=== PATIENT | male | born 1965 | race African-American/Black ===

== ENCOUNTER 2019-04-28 14:03 | Inpatient (IN) ==
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
--- NOTE | 2019-04-28 15:08 | CT Scan Report ---
CT SCAN OF THE BRAIN WITHOUT IV CONTRAST CLINICAL HISTORY: Headache. COMPARISON STUDY: CT of the brain dated 01/20/2019. TECHNIQUE: Unenhanced axial CT scan of the brain is performed from the vertex to the skull base. A d ose lowering technique was utilized adhering to the principles of ALARA. FINDINGS: Brain parenchyma: There is mild microangiopathic change. Chronic lacunar infarcts are noted in the le ft thalamus and the right cerebellar hemisphere. There is no hemorrhage, mass effect, or evidence of acute territorial ischemia by CT criteria. Wong-white matter differentiation is preserved. No extra-a xial fluid collection is seen. Ventricles, sulci, cisterns: Normal in configuration. Intracranial vasculature: There is atherosclerotic calcification of the cavernous carotid arteries. Calvarium: There is chronic posttraumatic deformity of the right temporal bone. No acute/depressed ca lvarial fracture is seen. Sinuses and mastoids: The visualized paranasal sinuses are clear. The mastoid air cells are well pneu matized. Orbits: The bony orbits are grossly intact. IMPRESSION: There is no hemorrhage, mass effect, or evidence of acute territorial ischemia by CT magen saez. ACT 112: Negative or not required by law. Electronically signed by: Riley Gu M.D. 04/28/2019 3:06 PM
--- NOTE | 2019-04-28 15:12 | CT Scan Report ---
CT SCAN OF THE CERVICAL SPINE CLINICAL HISTORY: Neck pain. COMPARISON STUDY: CT of the cervical spine dated 01/20/2019. TECHNIQUE: CT scan of the cervical spine is performed from the skull base to the upper thoracic spine . Images are reviewed in the axial, sagittal, and coronal planes. IV contrast was not administered fo r this examination. A dose lowering technique was utilized adhering to the principles of ALARA. CT DOSE: 1002.86 mGy.cm FINDINGS: Skeletal structures: The skeletal structures are well mineralized. There is no evidence of fracture o r subluxation involving the cervical spine. Vertebral body height and alignment are maintained. There is straightening of the cervical lordosis. The odontoid process and lateral masses are intact. The a tlantoaxial articulation is preserved noting productive degenerative change. The spinous processes ap pear intact. Intervertebral discs: The disc spaces are well maintained. Central canal: Widely patent. Soft tissues: The prevertebral and paraspinous soft tissues are within normal limits. A small lipoma is incidentally noted in the right occipital scalp. A 2.4 cm sebaceous cyst is again noted in the pos terior neck. This was also seen on 01/20/2019. Mild soft tissue induration is present in the soft tiss ues of the left posterior neck. There are shotty cervical lymph nodes. Calvarium: The visualized calvarium at the skull base appears intact. Brain parenchyma: Partially visualized brain parenchyma the skull base is within normal limits. Sinuses and mastoids: The visualized paranasal sinuses are clear. The mastoid air cells are well pneu matized. Lung apices: Clear as visualized. IMPRESSION: 1. There is no evidence of fracture or subluxation involving the cervical spine. 2. Mild spondylotic change as above. 3. There is subcutaneous soft tissue induration noted in the left posterior neck. Correlate clinicall y for evidence of contusion or possibly cellulitis. ACT 112: Negative or not required by law. Electronically signed by: Riley Gu M.D. 04/28/2019 3:11 PM
[2019-04-28 16:11] LABS: Basophils # (auto) 0.02 K/uL (0-0.2); Basophils % (auto) 0.1 %; Eosinophils # (auto) 0.06 K/uL (0-0.5); Eosinophils % (auto) 0.4 %; Hematocrit (blood only) 45.5 % (42-52); Hemoglobin 15.9 g/dL (14.0-18.0); Immature Granulocytes # (auto) 0.04 K/uL (0.00-0.02); Immature Granulocytes % (auto) 0.3 %; Lymphocytes # (auto) 1.46 K/uL (1.2-3.4); Lymphocytes % (auto) 10.5 %; Mean Corpuscular Hemoglobin 27.8 pg (25-34); Mean Corpuscular Hgb Conc 34.9 g/dL (32-36); Mean Corpuscular Volume 79.7 fL (80-100); Mean Platelet Volume 11.3 fL (7.4-10.4); Monocytes # (auto) 1.67 K/uL (0.11-0.59); Monocytes % (auto) 12.1 %; Neutrophils # (auto) 10.59 K/uL (1.4-6.5); Neutrophils % (auto) 76.6 %; Platelet Count 224 K/uL (130-400); RDW Coefficient of Variation 13.5 % (11.5-14.5); RDW Standard Deviation 38.5 fL (36.4-46.3); Red Blood Count 5.71 M/uL (4.7-6.1); White Blood Count 13.84 K/uL (4.8-10.8)
[2019-04-28 16:32] LABS: INR 1.6 (0.9-1.1); Partial Thromboplastin Ratio 1.4; Partial Thromboplastin Time 37.3 Seconds (21.0-31.0)
[2019-04-28 16:40] LABS: Calcium 9.6 mg/dl (8.5-10.1); Creatinine Clr Calc Pharmacy 78.4 ml/min; Est GFR (Non-African American) 68.1; Potassium 3.9 mmol/L (3.5-5.1)
[2019-04-28] MEDS ORDERED: IOVERSOL 100ml IV PRN (18:10)
--- NOTE | 2019-04-28 18:27 | CT Scan Report ---
CT soft tissue neck w con CT DOSE: 630.10 mGy.cm CLINICAL HISTORY: Posterior neck pain. Possible abscess. Possible mastoiditis. ABNORMAL CT SCAN OF TH E CERVICAL SPINE TECHNIQUE: Helical images were acquired during intravenous administration of 88 cc of Optiray 320. A dose lowering technique was utilized adhering to the principles of ALARA. COMPARISON STUDY: CT scan of the cervical spine dated April 28, 2019, CT scan of facial bones reinier ed 01/20/2019 FINDINGS: There is mild pulmonary emphysema. No apical masses are visualized No thyroid masses are visualized. No salivary gland masses are visualized. The left submandibular gland appears atrophic or absent. There are prominent left-sided cervical lymph node statistically reactive. There is a posterior subcutaneous fluid collection measuring 2.5 cm, centered at the C2-3 level. Ther e is infiltration of the surrounding fat. There are a few adjacent lymph nodes likely reactive. The f indings are viewed as suspicious for infected cyst. A cyst was visualized in this location on the or January [address] scan without evidence of surrounding inflammatory change. Clinical correla tion in this regard is advocated There is no evidence of airway compromise. No mucosal space masses are visualized. There is a stable 14 mm lytic lesion within the right posterior mandible with nonaggressive features. There are no findings to indicate acute mastoiditis. There is soft tissue within the left external auditory canal, possibly representing cerumen. IMPRESSION: 1. No evidence of mastoiditis as well as clinically queried 2. Soft tissue within the left external auditory canal, possibly representing cerumen 3. 2.5 cm posterior subcutaneous fluid collection centered at the C2-3-level with infiltration of dillon rounding fat. The findings are suspicious for an infected cyst. Clinical correlation in this regard i s advocated 4. Mild left-sided cervical lymphadenopathy, statistically reactive. Imaging follow-up subsequent to resolution of the current inflammatory process is recommended ACT 112: Negative or not required by law. Electronically signed by: Rg Cardenas M.D. 04/28/2019 6:26 PM
[2019-04-28] MEDS ORDERED: VANCOMYCIN CONSULT ACTIVE PRN ×2 (18:57→22:41)
[2019-04-28] MEDS ORDERED: VANCOMYCIN HCL 1,750 MG in SODIUM CHLORIDE 0.9% 500 ML IV ONE (18:57)
[2019-04-28] MEDS ORDERED: MoRPHine SULFATE 4 MG/ML 1 ML CARP\\VIAL IV STA (20:12)
[2019-04-28] MEDS ORDERED: LIDOCAINE/EPINEPHRINE 1% 20 ML VIAL ONE (20:45)
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
[2019-04-28] MEDS ORDERED: DEXTROSE 50% 50 ML SYRINGE IV PRN (22:41)
[2019-04-28] MEDS ORDERED: KETOROLAC TROMETHAMINE 15 MG/ML VIAL IV PRN (22:41)
[2019-04-28] MEDS ORDERED: ONDANSETRON INJ 2 MG/ML 2 ML VIAL IV PRN (22:41)
[2019-04-28] MEDS ORDERED: GLUCOSE 10 TABS/TUBE PO PRN (22:41)
[2019-04-28] MEDS ORDERED: GLUCAGON FOR INJ 1 MG VIAL SQ PRN (22:41)
[2019-04-28] MEDS ORDERED: CARBOHYDRATES FOR HYPOGLYCEMIA PO PRN (22:41)
[2019-04-28] MEDS ORDERED: ACETAMINOPHEN 325 MG TAB PO PRN (22:41)
[2019-04-28] MEDS ORDERED: GLUCOSE 40% GEL 15 GM TUBE PO PRN (22:41)
[2019-04-28] MEDS ORDERED: INSULIN HUMAN NPH SC ONE (23:00)
--- NOTE | 2019-04-28 23:09 | Pharmacy Report ---
Pharmacy Abx Dose Short Note - Date of Service April 28, 2019 - Assessment & Plan Laboratory Tests 04/28/19 04/28/19 15:14 15:14 WBC 13.84 H Creatinine 1.20 Est Cr Clr Drug Dosing 78.4 Assessment 53 year old M receiving VANC for treatment of SSTI Day # 1 of antimicrobial therapy. Plan Vancomycin * Estimated p'kinetics: Ke~0.0774hr-1, T1/2~9hrs * LOADING DOSE: Vanc 20mg/kg 1750mg IV x 1 * MAINTENANCE DOSE: Vanc 1250mg 15mg/kg IV q12h * Goal trough level: ~15 mcg/mL * VANC Trough @ Css prior to 04/30/19 0400 dose Pharmacy will continue to follow and will adjust dose/frequency as necessary. Thank you.
[2019-04-28] MEDS ORDERED: METOPROLOL TARTRATE 1 MG/ML VIAL IV PRN (23:11)
[2019-04-28] MEDS ORDERED: METOPROLOL TARTRATE 25 MG TAB PO STA (23:42)
[2019-04-29] MEDS: WARFARIN SOD 7.5 MG TAB PO SCH ×2 (00:15→17:10)
[2019-04-29] MEDS: MoRPHine SULFATE 2 MG/ML CARP IV PRN ×3 (00:16→19:06)
[2019-04-29] MEDS: INSULIN ASPART 100 UNITS/ML 3 ML PEN SC SCH ×5 (00:18→21:22)
[2019-04-29] MEDS ORDERED: METOPROLOL TARTRATE 25 MG TAB PO STA (01:32)
[2019-04-29] MEDS: VANCOMYCIN HCL 1,250 MG in SODIUM CHLORIDE 0.9% 250 ML IV SCH ×2 (04:02→16:05)
--- NOTE | 2019-04-29 05:58 | Surgery Consultation ---
Date of Consultation April 29, 2019 Assessment & Plan (1) Infected epidermoid cyst: Plan would be to continue twice daily packing of the wound using saline wet gauze We will culture swab wound at the next dressing change IV antibiotics-probably DC back to the visit in 1 to 2 days for continued wound care and p.o. antibiotics At some point in 6 weeks or so we would try to excise the cyst History of Present Illness Attending Physician: Babatunde Vera, DO History of Present Illness Patient presenting to the emergency room with posterior neck swelling Found on imaging to have appears to be a 2.5 cm subcutaneous cyst is likely infected Allergies Allergy/AdvReac Type Severity Reaction Status Date / Time Fish Containing Products Allergy Unknown Verified 04/28/19 15:39 milk Allergy Unknown Verified 04/28/19 15:39 orange Allergy Unknown Verified 04/28/19 15:39 penicillin G benzathine Allergy Unknown Uncoded 04/28/19 15:39 Home Medications Home Medications Medication Instructions Recorded Confirmed Type amlodipine 5 mg tablet 5 mg PO DAILY #30 tab 04/14/19 04/28/19 Rx aspirin 81 mg tablet,delayed 81 mg PO DAILY #30 tab 04/14/19 04/28/19 Rx release atorvastatin 20 mg tablet 20 mg PO DAILY #30 tab 04/14/19 04/28/19 Rx hydrochlorothiazide 25 mg tablet 25 mg PO DAILY #30 tab 04/14/19 04/28/19 Rx insulin NPH isoph U-100 human 100 See Rx Instructions SQ BID #3 ml 04/14/19 04/28/19 Rx unit/mL subcutaneous suspension lisinopril 10 mg tablet 10 mg PO DAILY #30 tab 04/14/19 04/28/19 Rx metformin 500 mg tablet 500 mg PO BID #60 tab 04/14/19 04/28/19 Rx risperidone 4 mg tablet 4 mg PO DAILY #30 tab 04/14/19 04/28/19 Rx diphenhydramine HCl 50 mg PO HS PRN 04/28/19 04/28/19 History warfarin 7.5 mg PO DAILY 04/28/19 04/28/19 History Patient History Medical History (Updated 04/29/19 @ 06:01 by Lukasz Khan MD, FACS) Atrial fibrillation Cocaine use disorder Diabetes mellitus type II, uncontrolled HTN (hypertension) Hypercholesterolemia Schizophrenia Thyroid disorder Surgical History No pertinent past surgical history Family History Other Family history non-contributory Social History Preferred Language: [place] 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 in the emergency room Dr. Ibrahim and I formed ultrasound and incision and drainage of an infected epidermoid cyst Constitutional: well developed and well nourished; no acute distress Eyes: + anicteric sclerae Respiratory: normal respiratory effort; no respiratory distress Cardiovascular: Rate/Rhythm: regular rate Skin: [place] of the left posterior neck area Neurologic: awake Psychiatric: Orientation: alert Results & Data Vital Signs (Past 12 Hours) Vital Signs Temp Pulse Pulse Resp BP BP Pulse Ox 04/29/19 02:34 103 H 126/88 04/29/19 01:26 118 H 137/91 93 04/29/19 00:30 118 H 149/89 H 04/28/19 22:43 37.2 C 124 H 18 161/102 H 96 04/28/19 22:25 109 H 20 155/98 H 94 04/28/19 21:00 115 H 20 156/103 H 96 04/28/19 18:42 86 18 138/89 96 I did review the CAT scan PG Care Time/CCT Total # of Minutes Spent Total Time Spent with Patient: Total time spent is greater than 50% in coordination of care (as documented) at patient's floor/unit and/or counseling patient: Coding Level of Care Code 73426 Inpt Consult Level 4 Diagnoses Infected epidermoid cyst L72.0; L08.9
[2019-04-29 06:05] LABS: Hematocrit (blood only) 45.1 % (42-52); Hemoglobin 15.6 g/dL (14.0-18.0); Mean Corpuscular Hemoglobin 27.6 pg (25-34); Mean Corpuscular Hgb Conc 34.6 g/dL (32-36); Mean Corpuscular Volume 79.8 fL (80-100); Platelet Count 203 K/uL (130-400); RDW Coefficient of Variation 13.7 % (11.5-14.5); RDW Standard Deviation 39.6 fL (36.4-46.3); Red Blood Count 5.65 M/uL (4.7-6.1); White Blood Count 20.39 K/uL (4.8-10.8)
[2019-04-29 06:15] LABS: INR 1.7 (0.9-1.1); Prothrombin Time 17.2 Seconds (9.0-12.0)
[2019-04-29 06:35] LABS: BUN Creatinine Ratio 12.3 (10-20); Calcium 9.2 mg/dl (8.5-10.1); Creatinine Clr Calc Pharmacy 90.9 ml/min; Est GFR (African American) 96.1; Est GFR (Non-African American) 82.9; Potassium 3.6 mmol/L (3.5-5.1)
[2019-04-29] MEDS ORDERED: PERFLUTREN LIPID MICROSPHERE (DEFINITY) IV ONE (07:53)
[2019-04-29] MEDS: METOPROLOL SUCC 50MG EXT REL TAB PO SCH (08:23)
[2019-04-29] MEDS: risperiDONE 2 MG TABLET PO SCH (08:23)
[2019-04-29] MEDS: AMLODIPINE BESYLATE 5 MG TAB PO SCH (08:23)
[2019-04-29] MEDS: ASPIRIN 81 MG ECTAB PO SCH (08:23)
[2019-04-29] MEDS: hydroCHLOROthiazide 25 MG TAB PO SCH (08:24)
[2019-04-29] MEDS: lisinopriL 10 MG TAB PO SCH (08:24)
[2019-04-29] MEDS: ATORVASTATIN 20 MG TAB PO SCH (08:24)
--- NOTE | 2019-04-29 08:52 | Surgery Progress Note ---
Date of Service April 29, 2019 Assessment & Plan (1) Infected epidermoid cyst: Day #1 s/p I&D of posterior neck cyst WBC 20 today, patient afebrile Continue twice daily packing of the wound using saline wet 1/4" gauze Wound care orders in for nursing to change Please obtain culture swab wound at the next dressing change Continue IV abx today, anticipate discharge to facility in 24-48 hours on po abx and ongoing wound care Will leave instructions for patient to follow up in clinic to potentially plan for cyst excision in ~6weeks Subjective Patient lying in bed, offers no complaints. Denies pain at posterior neck currently, but is a little sore to touch. Physical Exam Physical Exam: awake/alert Constitutional: well developed and well nourished; no acute distress Skin: swelling of posterior neck; no erythema noted; incision with packing in place (serosang drainage) Results & Data Vital Signs (Past 12 Hours) Vital Signs Temp Pulse Pulse Resp BP BP Pulse Ox 04/29/19 08:21 103 H 136/90 04/29/19 06:51 37.4 C 107 H 21 144/99 H 90 04/29/19 02:34 103 H 126/88 04/29/19 01:26 118 H 137/91 93 04/29/19 00:30 118 H 149/89 H 04/28/19 22:43 37.2 C 124 H 18 161/102 H 96 04/28/19 22:25 109 H 20 155/98 H 94 04/28/19 21:00 115 H 20 156/103 H 96 PG Care Time/CCT Total # of Minutes Spent Total Time Spent with Patient: Total time spent is greater than 50% in coord ination of care (as documented) at patient's floor/unit and/or counseling patient: Coding Level of Care Code 40186 Subseq Hosp Care Lvl 1 Diagnoses Infected epidermoid cyst L72.0; L08.9
[2019-04-29] MEDS ORDERED: INSULIN NPH ISOPH U HUMAN SQ SCH (09:00)
[2019-04-29] MEDS: INSULIN HUMAN NPH SC SCH ×2 (09:26→17:55)
--- NOTE | 2019-04-29 16:37 | XCELERA ---
[id number] \\[email or web address]\[email or web address]\[id number]
[2019-04-30] MEDS ORDERED: VANCOMYCIN TROUGH ONE (03:30)
[2019-04-30 04:03] LABS: Hematocrit (blood only) 42.1 % (42-52); Hemoglobin 14.4 g/dL (14.0-18.0); Mean Corpuscular Hemoglobin 27.3 pg (25-34); Mean Corpuscular Hgb Conc 34.2 g/dL (32-36); Mean Corpuscular Volume 79.9 fL (80-100); Mean Platelet Volume 10.8 fL (7.4-10.4); Platelet Count 184 K/uL (130-400); RDW Coefficient of Variation 13.4 % (11.5-14.5); RDW Standard Deviation 38.7 fL (36.4-46.3); Red Blood Count 5.27 M/uL (4.7-6.1); White Blood Count 14.41 K/uL (4.8-10.8)
[2019-04-30 04:17] LABS: INR 2.3 (0.9-1.1); Prothrombin Time 21.8 Seconds (9.0-12.0)
[2019-04-30 04:30] LABS: BUN Creatinine Ratio 17.4 (10-20); Calcium 8.8 mg/dl (8.5-10.1); Creatinine Clr Calc Pharmacy 104.2 ml/min; Est GFR (African American) 112.3; Est GFR (Non-African American) 96.9; Potassium 2.8 mmol/L (3.5-5.1)
[2019-04-30] MEDS: VANCOMYCIN HCL 1,250 MG in SODIUM CHLORIDE 0.9% 250 ML IV SCH ×3 (04:34→18:21)
--- NOTE | 2019-04-30 06:00 | Hospitalist Progress Note ---
Date of Service April 29, 2019 Assessment & Plan (1) Infected sebaceous cyst: posterior neck POD #1 s/p I & D wound cx pending cont IV Vanco appreciate surgery consult repeat cbc am (2) Atrial fibrillation: Chronic cont BB cont warfarin w/ daily INR echo with hyperdynamic LV function - due to hyperthyroidism? (3) Diabetes mellitus type II, uncontrolled: increase correction on novolog increase carb coverage on novolog increase AM NPH 35 units qbreakfast may need adjustment in PM NPH as well check a1c (4) Hypercholesterolemia: Continue atorvastatin (5) HTN (hypertension): Continue amlodipine and lisinopril (6) Schizophrenia: Continue risperidone (7) Hyperthyroidism: previous 2 TSHs very suppressed he has lost 20 pounds recently - possibly due to untreated hyperthyroidism check TSH / free T4 in am and go from there likely needs Rx Admission and Anticipated Discharge Date Admission Date: April 28, 2019 Anticipated date of discharge: 04/30/19 Subjective patient reports that posterior neck feels better he is eating reports 20 pounds of weight loss over the last 2-3 months unintentional does know he has overactive thyroid but reports no history of treatment for such or seeing an growth 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 mushroom Review of Systems Constitutional: + fever; no fatigue Respiratory: no cough and no dyspnea Cardiovascular: no chest pain Gastrointestinal: no abdominal pain Physical Exam Constitutional: no acute distress and no altered mental status ENMT: external ear and nose normal, oropharynx normal Neck: Thyroid: + thyromegaly (mild); thyroid not firm, no thyroid mass, no thyroid nodules, thyroid nontender and thyroid not warm posterior neck below occiput -- dressing in place; dressing removed and packing tape present in the core of the cyst; mild serosanguinous drainage only; mild odor Respiratory: normal respiratory effort, lungs clear to auscultation Cardiovascular: Rate/Rhythm: regular rate and regular rhythm Heart Sounds: normal S1 and normal S2; no murmur Vessels: posterior tibial pulses present and dorsalis pedis pulses present; no JVD Extremities: no edema Gastrointestinal (Abdomen): normal bowel sounds, soft, nontender, no hepatosplenomegaly Results & Data ([facility]) Vital Signs (Past 12 Hours) Vital Signs Temp Pulse Resp BP Pulse Ox 04/29/19 23:01 37.6 C H 04/29/19 22:55 37.8 C H 90 18 136/90 93 cbc with elevated wbc POC blood sugars all >200 PG Care Time/CCT Total # of Minutes Spent Total Time Spent with Patient: Total time spent is greater than 50% in coordination of care (as documented) at patient's floor/unit and/or counseling patient: Coding Level of Care Code 19036 Subseq Hosp Care Lvl 3 Diagnoses Infected sebaceous cyst L72.3; L08.9 Atrial fibrillation I48.91 Diabetes mellitus type II, uncontrolled E11.65 Hypercholesterolemia E78.00 HTN (hypertension) I10 Schizophrenia F20.9 Hyperthyroidism E05.90
[2019-04-30 06:55] LABS: Thyroid Stimulating Hormone < 0.005 uIu/ml (0.300-4.500)
[2019-04-30 07:08] LABS: T4 Free Thyroxine 2.23 ng/dl (0.8-1.6)
--- NOTE | 2019-04-30 08:31 | Pharmacy Report ---
Pharmacy Abx Dose Progress Nt - Date of Service April 30, 2019 - Pharmacy Dosing Scope The patient is currently receiving the following antimicrobial agents per Pharmacy consult: VANCOMYCIN 1,250 mg IV every 12 hours - Objective Vital Signs (Past 12hrs): Vital Signs Temp Pulse Pulse Resp BP Pulse Ox 04/30/19 07:30 37 C 89 20 138/92 90 04/29/19 23:01 37.6 C H 04/29/19 22:55 37.8 C H 90 18 136/90 93 Lab Results (24hrs): Laboratory Tests (24 Hours) 04/30/19 04/30/19 04/30/19 03:49 03:49 03:49 WBC 14.41 H Creatinine 0.89 Est Cr Clr Drug Dosing 104.2 Vancomycin Trough 6.1 Micro Results: 04/29/19 12:35 Gram Stain - Final Neck Deep Wound Culture - Pending - Risk Factors for Resistance * Incarcerated - Assessment & Plan Assessment 53 year old M receiving Vancomycin for treatment of Infected sebaceous cyst Day # 3 of antimicrobial therapy Plan Vancomycin IV * Trough level of 6.1 mcg/mL is subtherapeutic * Continue dose of 1,250 mg (15mg/kg) IV but increase dosing interval from Q12hrs to Q8hrs * Goal trough level for SST : 10 to 20 mcg/mL depending on c/s * Repeat trough level ordered for: 05/02/19 @ 0130 Pharmacy will continue to follow and will adjust dose/frequency as necessary. Thank you.
[2019-04-30] MEDS: INSULIN HUMAN NPH SC SCH ×2 (09:23→18:54)
--- NOTE | 2019-04-30 09:23 | Surgery Progress Note ---
Date of Service April 30, 2019 Assessment & Plan (1) Infected epidermoid cyst: Postoperative day #1, status post I&D of infected epidermal cyst on posterior neck Having less pain than preop Cultures pending Continue Vanco until culture results are available WBC has decreased today Subjective Postoperative day #1, status post I&D of infected epidermoid cyst on posterior neck Having minimal amount of pain Denies nausea and vomiting Cultures are pending Physical Exam Neck: Incision is open Less induration No erythema Moderate amount of drainage on the dressing Results & Data Vital Signs (Past 12 Hours) Vital Signs Temp Pulse Pulse Resp BP Pulse Ox 04/30/19 07:30 37 C 89 20 138/92 90 04/29/19 23:01 37.6 C H 04/29/19 22:55 37.8 C H 90 18 136/90 93 Laboratory Results 04/30/19 04/30/19 04/30/19 Range/Units 03:49 03:49 03:49 WBC (4.8-10.8) K/uL RBC (4.7-6.1) M/uL Hgb (14.0-18.0) g/dL Hct (42-52) % MCV (80-100) fL MCH (25-34) pg MCHC (32-36) g/dL RDW Std Deviation (36.4-46.3) fL RDW Coeff of Carina (11.5-14.5) % Plt Count (130-400) K/uL MPV (7.4-10.4) fL PT (9.0-12.0) Seconds INR (0.9-1.1) Sodium (136-145) mmol/L Potassium (3.5-5.1) mmol/L Chloride (98-107) mmol/L Carbon Dioxide (21-32) mmol/L Anion Gap (3-11) BUN (7-18) mg/dl Creatinine (0.6-1.4) mg/dl Est Cr Clr Drug Dosing ml/min Est GFR ( Amer) Est GFR (Non-Af Amer) BUN/Creatinine Ratio (10-20) Glucose (70-99) mg/dl POC Glucose (70-99) mg/dl Estimat Average Glucose TNP Hemoglobin A1c TNP Hgb A1c Pathologist Com Pending Calcium (8.5-10.1) mg/dl TSH < 0.005 L (0.300-4.500) uIu/ml Free T4 2.23 H (0.8-1.6) ng/dl Vancomycin Trough 6.1 (See Comment) mcg/ml 04/30/19 04/30/19 04/30/19 Range/Units 03:49 03:49 03:49 WBC 14.41 H (4.8-10.8) K/uL RBC 5.27 (4.7-6.1) M/uL Hgb 14.4 (14.0-18.0) g/dL Hct 42.1 (42-52) % MCV 79.9 L (80-100) fL MCH 27.3 (25-34) pg MCHC 34.2 (32-36) g/dL RDW Std Deviation 38.7 (36.4-46.3) fL RDW Coeff of Carina 13.4 (11.5-14.5) % Plt Count 184 (130-400) K/uL MPV 10.8 H (7.4-10.4) fL PT 21.8 H (9.0-12.0) Seconds INR 2.3 H (0.9-1.1) Sodium 134 L (136-145) mmol/L Potassium 2.8 L D (3.5-5.1) mmol/L Chloride 97 L (98-107) mmol/L Carbon Dioxide 30 (21-32) mmol/L Anion Gap 7.0 (3-11) BUN 15 (7-18) mg/dl Creatinine 0.89 (0.6-1.4) mg/dl Est Cr Clr Drug Dosing 104.2 ml/min Est GFR ( Amer) 112.3 Est GFR (Non-Af Amer) 96.9 BUN/Creatinine Ratio 17.4 (10-20) Glucose 87 (70-99) mg/dl POC Glucose (70-99) mg/dl Estimat Average Glucose Hemoglobin A1c Hgb A1c Pathologist Com Calcium 8.8 (8.5-10.1) mg/dl TSH (0.300-4.500) uIu/ml Free T4 (0.8-1.6) ng/dl Vancomycin Trough (See Comment) mcg/ml 04/30/19 04/29/19 04/29/19 Range/Units 01:07 20:57 20:53 WBC (4.8-10.8) K/uL RBC (4.7-6.1) M/uL Hgb (14.0-18.0) g/dL Hct (42-52) % MCV (80-100) fL MCH (25-34) pg MCHC (32-36) g/dL RDW Std Deviation (36.4-46.3) fL RDW Coeff of Carina (11.5-14.5) % Plt Count (130-400) K/uL MPV (7.4-10.4) fL PT (9.0-12.0) Seconds INR (0.9-1.1) Sodium (136-145) mmol/L Potassium (3.5-5.1) mmol/L Chloride (98-107) mmol/L Carbon Dioxide (21-32) mmol/L Anion Gap (3-11) BUN (7-18) mg/dl Creatinine (0.6-1.4) mg/dl Est Cr Clr Drug Dosing ml/min Est GFR ( Amer) Est GFR (Non-Af Amer) BUN/Creatinine Ratio (10-20) Glucose (70-99) mg/dl POC Glucose 84 292 H 308 H* (70-99) mg/dl Estimat Average Glucose Hemoglobin A1c Hgb A1c Pathologist Com Calcium (8.5-10.1) mg/dl TSH (0.300-4.500) uIu/ml Free T4 (0.8-1.6) ng/dl Vancomycin Trough (See Comment) mcg/ml 04/29/19 04/29/19 Range/Units 17:22 12:04 WBC (4.8-10.8) K/uL RBC (4.7-6.1) M/uL Hgb (14.0-18.0) g/dL Hct (42-52) % MCV (80-100) fL MCH (25-34) pg MCHC (32-36) g/dL RDW Std Deviation (36.4-46.3) fL RDW Coeff of Carina (11.5-14.5) % Plt Count (130-400) K/uL MPV (7.4-10.4) fL PT (9.0-12.0) Seconds INR (0.9-1.1) Sodium (136-145) mmol/L Potassium (3.5-5.1) mmol/L Chloride (98-107) mmol/L Carbon Dioxide (21-32) mmol/L Anion Gap (3-11) BUN (7-18) mg/dl Creatinine (0.6-1.4) mg/dl Est Cr Clr Drug Dosing ml/min Est GFR ( Amer) Est GFR (Non-Af Amer) BUN/Creatinine Ratio (10-20) Glucose (70-99) mg/dl POC Glucose 282 H 272 H (70-99) mg/dl Estimat Average Glucose Hemoglobin A1c Hgb A1c Pathologist Com Calcium (8.5-10.1) mg/dl TSH (0.300-4.500) uIu/ml Free T4 (0.8-1.6) ng/dl Vancomycin Trough (See Comment) mcg/ml
[2019-04-30] MEDS: INSULIN ASPART 100 UNITS/ML 3 ML PEN SC SCH ×4 (09:24→20:47)
[2019-04-30] MEDS: ATORVASTATIN 20 MG TAB PO SCH (09:26)
[2019-04-30] MEDS: AMLODIPINE BESYLATE 5 MG TAB PO SCH (09:26)
[2019-04-30] MEDS: lisinopriL 10 MG TAB PO SCH (09:26)
[2019-04-30] MEDS: ASPIRIN 81 MG ECTAB PO SCH (09:27)
[2019-04-30] MEDS: METOPROLOL SUCC 50MG EXT REL TAB PO SCH (09:27)
[2019-04-30] MEDS: risperiDONE 2 MG TABLET PO SCH (09:27)
[2019-04-30] MEDS: hydroCHLOROthiazide 25 MG TAB PO SCH (09:27)
[2019-04-30] MEDS: POTASSIUM CHLORIDE 20 MEQ TABCR PO SCH ×3 (10:19→20:42)
[2019-04-30] MEDS: methIMAzole 5 MG TABLET PO SCH (10:20)
--- NOTE | 2019-04-30 10:52 | Ultrasound Report ---
US thyroid CLINICAL HISTORY: hyperthyroidism COMPARISON STUDY: CT scan dated 04/28/2019 FINDINGS: The right lobe the thyroid measures 57 x 19 x 21 mm. The left lobe measures 45 x 22 x 21 mm . Both lobes are heterogeneous in echotexture. No focal thyroid nodules are visualized. IMPRESSION: Bilaterally heterogeneous thyroid gland. No focal masses identified. ACT 112: Negative or not required by law. Electronically signed by: Rg Cardenas M.D. 04/30/2019 10:51 AM
[2019-04-30] MEDS: POTASSIUM CHLORIDE / WTR 10 MEQ/100 ML PLCT IV SCH ×2 (10:58→12:14)
[2019-04-30] MEDS: WARFARIN SOD 7.5 MG TAB PO SCH (15:32)
--- NOTE | 2019-04-30 18:22 | Hospitalist Progress Note ---
Date of Service April 30, 2019 Assessment & Plan (1) Infected sebaceous cyst: posterior neck POD #2 s/p I & D by Dr Khan wound cx w/ coag neg staph cont IV Vanco at discharge would Rx with doxy or bactrim appreciate surgery consult repeat cbc am but leukocytosis IS improving nicely (2) Atrial fibrillation: PAF in NSR at this time cont BB cont warfarin w/ daily INR echo with hyperdynamic LV function - suspect due to hyperthyroidism? (3) Diabetes mellitus type II, uncontrolled: improved with increase in correction and novolog carb coverage increased AM NPH to 35 units qbreakfast today lower PM NPH to 20 units qdinner a1c pending (4) Hypercholesterolemia: Continue atorvastatin (5) HTN (hypertension): Continue HCTZ, amlodipine and lisinopril (6) Schizophrenia: Continue risperidone (7) Hyperthyroidism: TSH and free T4 c/w mild-moderate hyperthyroidism thyroid u/s with heterogeneous appearance this is suggestive of Graves or Dieudonne's thyroiditis but he is not having thyroid tenderness, pain, etc likely Graves start methimazole 10mg daily will need endo f/u post-d/c cont betablocker weight loss likely due to hyperthyroidism (8) Severe protein-calorie malnutrition: 30 pounds of weight loss over last several months likely from hyperthyroidism (9) DVT prophylaxis: coumadin possible d/c to shelter tomorrow Admission and Anticipated Discharge Date Admission Date: April 28, 2019 Anticipated date of discharge: 05/01/19 Subjective guards report he has been sleepy most of the AM but ate breakfast and during my visit at lunchtime he awoke when I called his name. we had a discussion about his hyperthyroidism and need for work-up. denied any complaints. Review of Systems Constitutional: + fever and + fatigue; no chills and no anorexia Respiratory: no dyspnea Cardiovascular: no chest pain Gastrointestinal: no abdominal pain Physical Exam Constitutional: no acute distress and no altered mental status ENMT: external ear and nose normal, oropharynx normal Neck: Thyroid: + thyromegaly (mild) Respiratory: normal respiratory effort, lungs clear to auscultation Cardiovascular: Rate/Rhythm: regular rate and regular rhythm Heart Sounds: normal S1 and normal S2; no murmur Vessels: posterior tibial pulses present and dorsalis pedis pulses present; no JVD Extremities: no edema Gastrointestinal (Abdomen): normal bowel sounds, soft, nontender, no hepatosplenomegaly Skin: posterior occiput - mild serosanguinous drainage from former abscess/cyst incision site; malodorous smell is improved today; mild swelling in this regiong Neurologic: strength 5/5 x 4 exts; no facial droop; speech fluent Results & Data ([facility]) Vital Signs (Past 12 Hours) Vital Signs Temp Pulse Pulse Resp BP Pulse Ox 04/30/19 15:01 37.3 C 86 17 109/75 90 04/30/19 07:30 37 C 89 20 138/92 90 Laboratory Results Laboratory Results - last 24 hr 04/29/19 04/29/19 04/30/19 20:53 20:57 01:07 WBC RBC Hgb Hct MCV MCH MCHC RDW Std Deviation RDW Coeff of Carina Plt Count MPV PT INR Sodium Potassium Chloride Carbon Dioxide Anion Gap BUN Creatinine Est Cr Clr Drug Dosing Est GFR ( Amer) Est GFR (Non-Af Amer) BUN/Creatinine Ratio Glucose POC Glucose 308 H* 292 H 84 Estimat Average Glucose Hemoglobin A1c Hgb A1c Pathologist Com Calcium Magnesium TSH Free T4 Vancomycin Trough 04/30/19 04/30/19 04/30/19 03:49 03:49 03:49 WBC 14.41 H RBC 5.27 Hgb 14.4 Hct 42.1 MCV 79.9 L MCH 27.3 MCHC 34.2 RDW Std Deviation 38.7 RDW Coeff of Carina 13.4 Plt Count 184 MPV 10.8 H PT 21.8 H INR 2.3 H Sodium 134 L Potassium 2.8 L D Chloride 97 L Carbon Dioxide 30 Anion Gap 7.0 BUN 15 Creatinine 0.89 Est Cr Clr Drug Dosing 104.2 Est GFR ( Amer) 112.3 Est GFR (Non-Af Amer) 96.9 BUN/Creatinine Ratio 17.4 Glucose 87 POC Glucose Estimat Average Glucose Hemoglobin A1c Hgb A1c Pathologist Com Calcium 8.8 Magnesium TSH Free T4 Vancomycin Trough 04/30/19 04/30/19 04/30/19 03:49 03:49 03:49 WBC RBC Hgb Hct MCV MCH MCHC RDW Std Deviation RDW Coeff of Carina Plt Count MPV PT INR Sodium Potassium Chloride Carbon Dioxide Anion Gap BUN Creatinine Est Cr Clr Drug Dosing Est GFR ( Amer) Est GFR (Non-Af Amer) BUN/Creatinine Ratio Glucose POC Glucose Estimat Average Glucose TNP Hemoglobin A1c TNP Hgb A1c Pathologist Com Pending Calcium Magnesium TSH < 0.005 L Free T4 2.23 H Vancomycin Trough 6.1 04/30/19 04/30/19 04/30/19 03:49 09:09 11:57 WBC RBC Hgb Hct MCV MCH MCHC RDW Std Deviation RDW Coeff of Carina Plt Count MPV PT INR Sodium Potassium Chloride Carbon Dioxide Anion Gap BUN Creatinine Est Cr Clr Drug Dosing Est GFR ( Amer) Est GFR (Non-Af Amer) BUN/Creatinine Ratio Glucose POC Glucose 153 H 164 H Estimat Average Glucose Hemoglobin A1c Hgb A1c Pathologist Com Calcium Magnesium 2.3 TSH Free T4 Vancomycin Trough 04/30/19 17:05 WBC RBC Hgb Hct MCV MCH MCHC RDW Std Deviation RDW Coeff of Carina Plt Count MPV PT INR Sodium Potassium Chloride Carbon Dioxide Anion Gap BUN Creatinine Est Cr Clr Drug Dosing Est GFR ( Amer) Est GFR (Non-Af Amer) BUN/Creatinine Ratio Glucose POC Glucose 136 H Estimat Average Glucose Hemoglobin A1c Hgb A1c Pathologist Com Calcium Magnesium TSH Free T4 Vancomycin Trough PG Care Time/CCT Total # of Minutes Spent Total Time Spent with Patient: Total time spent is greater than 50% in coordination of care (as documented) at patient's floor/unit and/or counseling patient: Coding Level of Care Code 37779 Subseq Hosp Care Lvl 3 Diagnoses Infected sebaceous cyst L72.3; L08.9 Atrial fibrillation I48.91 Diabetes mellitus type II, uncontrolled E11.65 Hypercholesterolemia E78.00 HTN (hypertension) I10 Schizophrenia F20.9 Hyperthyroidism E05.90 Severe protein-calorie malnutrition E43 DVT prophylaxis Z29.9
[2019-04-30] MEDS ORDERED: HEPARIN SOD 5,000 UNIT/0.5 ML VIAL SQ SCH (22:00)
[2019-05-01] MEDS: VANCOMYCIN HCL 1,250 MG in SODIUM CHLORIDE 0.9% 250 ML IV SCH (03:10)
[2019-05-01 06:45] LABS: Hematocrit (blood only) 36.5 % (42-52); Hemoglobin 12.6 g/dL (14.0-18.0); Mean Corpuscular Hgb Conc 34.5 g/dL (32-36); Mean Corpuscular Volume 78.2 fL (80-100); Mean Platelet Volume 10.6 fL (7.4-10.4); Platelet Count 191 K/uL (130-400); RDW Coefficient of Variation 13.2 % (11.5-14.5); RDW Standard Deviation 37.6 fL (36.4-46.3); Red Blood Count 4.67 M/uL (4.7-6.1); White Blood Count 8.22 K/uL (4.8-10.8)
[2019-05-01 06:57] LABS: INR 2.3 (0.9-1.1); Prothrombin Time 21.9 Seconds (9.0-12.0)
[2019-05-01 07:17] LABS: BUN Creatinine Ratio 19.2 (10-20); Calcium 8.2 mg/dl (8.5-10.1); Creatinine Clr Calc Pharmacy 107.8 ml/min; Est GFR (African American) 113.9; Est GFR (Non-African American) 98.3; Potassium 3.2 mmol/L (3.5-5.1)
[2019-05-01] MEDS ORDERED: DOXYCYCLINE HYCLATE 100 MG CAP PO SCH (09:00)
[2019-05-01] MEDS: INSULIN ASPART 100 UNITS/ML 3 ML PEN SC SCH ×3 (09:26→16:51)
[2019-05-01] MEDS: INSULIN HUMAN NPH SC SCH ×2 (09:27→16:51)
[2019-05-01] MEDS: METOPROLOL SUCC 50MG EXT REL TAB PO SCH (09:28)
[2019-05-01] MEDS: lisinopriL 10 MG TAB PO SCH (09:28)
[2019-05-01] MEDS: AMLODIPINE BESYLATE 5 MG TAB PO SCH (09:28)
[2019-05-01] MEDS: POTASSIUM CHLORIDE 20 MEQ TABCR PO SCH ×2 (09:28→12:51)
[2019-05-01] MEDS: methIMAzole 5 MG TABLET PO SCH (09:28)
[2019-05-01] MEDS: ATORVASTATIN 20 MG TAB PO SCH (09:29)
[2019-05-01] MEDS: risperiDONE 2 MG TABLET PO SCH (09:29)
[2019-05-01] MEDS: hydroCHLOROthiazide 25 MG TAB PO SCH (09:29)
[2019-05-01] MEDS: ASPIRIN 81 MG ECTAB PO SCH (09:29)
--- NOTE | 2019-05-01 09:52 | Surgery Progress Note ---
Date of Service May 01, 2019 Assessment & Plan (1) Abscess: Cultures demonstrated coag negative staph Less induration and no erythema From surgical standpoint can return back to place of incarceration [facility] Subjective Awake alert Having mild pain in I&D area Small to moderate amount of drainage on dressing Physical Exam Neck: Incision is open. I can only express a small amount of clear to slightly turbid fluid No erythema around incision Results & Data Vital Signs (Past 12 Hours) Vital Signs Temp Pulse Pulse Resp BP Pulse Ox 05/01/19 07:47 37.0 C 70 16 128/81 92 04/30/19 22:54 36.9 C 78 16 122/83 94 Laboratory Results 05/01/19 05/01/19 05/01/19 Range/Units 08:15 06:18 06:18 WBC 8.22 (4.8-10.8) K/uL RBC 4.67 L (4.7-6.1) M/uL Hgb 12.6 L (14.0-18.0) g/dL Hct 36.5 L (42-52) % MCV 78.2 L (80-100) fL MCH 27.0 (25-34) pg MCHC 34.5 (32-36) g/dL RDW Std Deviation 37.6 (36.4-46.3) fL RDW Coeff of Carina 13.2 (11.5-14.5) % Plt Count 191 (130-400) K/uL MPV 10.6 H (7.4-10.4) fL PT (9.0-12.0) Seconds INR (0.9-1.1) Sodium 135 L (136-145) mmol/L Potassium 3.2 L (3.5-5.1) mmol/L Chloride 102 (98-107) mmol/L Carbon Dioxide 26 (21-32) mmol/L Anion Gap 7.0 (3-11) BUN 17 (7-18) mg/dl Creatinine 0.86 (0.6-1.4) mg/dl Est Cr Clr Drug Dosing 107.8 ml/min Est GFR ( Amer) 113.9 Est GFR (Non-Af Amer) 98.3 BUN/Creatinine Ratio 19.2 (10-20) Glucose 89 (70-99) mg/dl POC Glucose 102 H (70-99) mg/dl Calcium 8.2 L (8.5-10.1) mg/dl 05/01/19 04/30/19 04/30/19 Range/Units 06:18 20:33 17:05 WBC (4.8-10.8) K/uL RBC (4.7-6.1) M/uL Hgb (14.0-18.0) g/dL Hct (42-52) % MCV (80-100) fL MCH (25-34) pg MCHC (32-36) g/dL RDW Std Deviation (36.4-46.3) fL RDW Coeff of Carina (11.5-14.5) % Plt Count (130-400) K/uL MPV (7.4-10.4) fL PT 21.9 H (9.0-12.0) Seconds INR 2.3 H (0.9-1.1) Sodium (136-145) mmol/L Potassium (3.5-5.1) mmol/L Chloride (98-107) mmol/L Carbon Dioxide (21-32) mmol/L Anion Gap (3-11) BUN (7-18) mg/dl Creatinine (0.6-1.4) mg/dl Est Cr Clr Drug Dosing ml/min Est GFR ( Amer) Est GFR (Non-Af Amer) BUN/Creatinine Ratio (10-20) Glucose (70-99) mg/dl POC Glucose 193 H 136 H (70-99) mg/dl Calcium (8.5-10.1) mg/dl 04/30/19 Range/Units 11:57 WBC (4.8-10.8) K/uL RBC (4.7-6.1) M/uL Hgb (14.0-18.0) g/dL Hct (42-52) % MCV (80-100) fL MCH (25-34) pg MCHC (32-36) g/dL RDW Std Deviation (36.4-46.3) fL RDW Coeff of Carina (11.5-14.5) % Plt Count (130-400) K/uL MPV (7.4-10.4) fL PT (9.0-12.0) Seconds INR (0.9-1.1) Sodium (136-145) mmol/L Potassium (3.5-5.1) mmol/L Chloride (98-107) mmol/L Carbon Dioxide (21-32) mmol/L Anion Gap (3-11) BUN (7-18) mg/dl Creatinine (0.6-1.4) mg/dl Est Cr Clr Drug Dosing ml/min Est GFR ( Amer) Est GFR (Non-Af Amer) BUN/Creatinine Ratio (10-20) Glucose (70-99) mg/dl POC Glucose 164 H (70-99) mg/dl Calcium (8.5-10.1) mg/dl
--- NOTE | 2019-05-01 13:36 | Discharge Summary ---
Date of Service May 01, 2019 Discharge Exam Constitutional no acute distress and no altered mental status ENMT external ear and nose normal, oropharynx normal Neck Thyroid: + thyromegaly (mild) Respiratory normal respiratory effort, lungs clear to auscultation Cardiovascular Rate/Rhythm: regular rate and regular rhythm Heart Sounds: normal S1 and normal S2; no murmur Vessels: posterior tibial pulses present and dorsalis pedis pulses present; no JVD Extremities: no edema Gastrointestinal (Abdomen) normal bowel sounds, soft, nontender, no hepatosplenomegaly Discharge Data Allergies Allergy/AdvReac Type Severity Reaction Status Date / Time Fish Containing Products Allergy Unknown Verified 04/28/19 15:39 milk Allergy Unknown Verified 04/28/19 15:39 orange Allergy Unknown Verified 04/28/19 15:39 penicillin G Allergy Unknown Verified 04/29/19 08:46 Consultations 04/28/19 21:19 ED Decision to Admit Stat 04/29/19 01:11 Consult General Surgery Routine Ordered Studies 04/28/19 14:30 CT cervical spine wo con Stat CT head/brain wo con Stat 04/28/19 15:54 CT soft tissue neck w con Stat 04/30/19 09:36 US thyroid Routine Hospital Course (1) Infected sebaceous cyst: posterior neck POD #2 s/p I & D by Dr Khan wound cx w/ coag neg staph cont IV Vanco at discharge would Rx with doxy or bactrim appreciate surgery consult repeat cbc am but leukocytosis IS improving nicely (2) Atrial fibrillation: PAF in NSR at this time cont BB cont warfarin w/ daily INR echo with hyperdynamic LV function - suspect due to hyperthyroidism? (3) Diabetes mellitus type II, uncontrolled: improved with increase in correction and novolog carb coverage increased AM NPH to 35 units qbreakfast today lower PM NPH to 20 units qdinner a1c pending (4) Hypercholesterolemia: Continue atorvastatin (5) HTN (hypertension): Continue HCTZ, amlodipine and lisinopril (6) Schizophrenia: Continue risperidone (7) Hyperthyroidism: TSH and free T4 c/w mild-moderate hyperthyroidism thyroid u/s with heterogeneous appearance this is suggestive of Graves or Dieudonne's thyroiditis but he is not having thyroid tenderness, pain, etc likely Graves start methimazole 10mg daily will need endo f/u post-d/c cont betablocker weight loss likely due to hyperthyroidism (8) Severe protein-calorie malnutrition: 30 pounds of weight loss over last several months likely from hyperthyroidism (9) DVT prophylaxis: coumadin possible d/c to residential tomorrow Discharge Plan Discharge Items [facility] Reason For Visit: INFECTED CYST, NECK Discharge Diagnosis: 1. infected cyst back of neck - s/p Incision & Drainage; culture with coag negative staph. 2. hyperthyroidism - endocrinology follow-up recommended. 3. type 2 diabetes. 4. low potassium - discharge K level 3.2. 5. chronic coumadin use; discharge INR 2.3. Activity: Resume your previous activity Non-emergency contact: Primary Care Provider and Surgeon Call non-emergency contact if: you have any medication questions, your symptoms worsen, you have a fever, your wound has increased redness, your wound has increased drainage and your wound pain has increased Follow-up/Referrals: Lukasz Khan MD, FACS [Physician] - (Please call to schedule an appointment in clinic within 2 weeks) Arlyn COVARRUBIAS [Primary Care Provider] - Diet: Carb Consistent or DM2 Addtl Attending Provider Instructions: Please continue twice daily dressing changes to posterior neck wound, with wet to dry dressing-saline moistened 1/4" inch packing (if the cyst cavity will allow entrance of any packing material); cover with 4x4 gauze, and adhere with paper tape. Addtl Field Evidence Technician Provider Instructions: 1. recheck BMP (basic metabolic panel) in 4-5 days due to recently low potassium level. 2. recheck INR in 4-5 days due to use of antibiotics and interaction with coumadin. 3. recheck TSH and free T4 in 10-14 days; patient started on methimazole for hyperthyroidism this admission. 4. ENDOCRINOLOGY referral for hyperthyroidism. GUILHERME if possible (2-3 weeks). 5. avoid sun exposure while on doxycycline antibiotic due to risk of skin rash from the doxycycline. 6. NPH insulin regimen -- * 35 units with breakfast * 20 units with dinner/evening meal 7. check blood sugars before meals & at bedtime, if possible, each and every day Pending Studies at Discharge: No Stand-Alone Forms: [facility] Skilled Items Patient informed of condition?: Yes Discharge Level of Care: Other Communicable Disease: No Discharge Prognosis: Stable Lines: None Urinary Catheter: No Medications and DC Order Prescriptions: New doxycycline hyclate 100 mg Capsule 100 mg PO BID 10 Days Qty: 20 RF: 0 metoprolol succinate 50 mg Tablet Extended Release 24 Hr 50 mg PO QAM Qty: 30 RF: 1 potassium chloride [Klor-Con M20] 20 mEq Tablet,Er Particles/Crystals 20 meq PO DIRECTED Qty: 60 RF: 0 methimazole 5 mg Tablet 10 mg PO DAILY Qty: 30 RF: 1 Continued amlodipine 5 mg tablet 5 mg PO DAILY Qty: 30 RF: 2 aspirin [Aspir-81] 81 mg tablet,delayed release (DR/EC) 81 mg PO DAILY Qty: 30 RF: 2 atorvastatin 20 mg tablet 20 mg PO DAILY Qty: 30 RF: 2 hydrochlorothiazide 25 mg tablet 25 mg PO DAILY Qty: 30 RF: 2 lisinopril 10 mg tablet 10 mg PO DAILY Qty: 30 RF: 2 metformin 500 mg tablet 500 mg PO BID Qty: 60 RF: 2 risperidone 4 mg tablet 4 mg PO DAILY Qty: 30 RF: 2 warfarin 7.5 mg Tablet 7.5 mg PO DAILY RF: 0 diphenhydramine HCl 50 mg capsule 50 mg PO HS PRN (Reason: itching) RF: 0 Changed Humulin N NPH U-100 Insulin 100 unit/mL suspension See Rx Instructions SQ BID Qty: 3 RF: 2 Discharge Orders: Discharge Order (Routine); Ordered 05/01/19 Ordered By: Atilio Mesa Admission Data Admit Date/Time: 04/28/19 21:30 Attending Provider: Atilio Mesa Admit Provider: Babatunde Vera Primary Care Provider: Arlyn COVARRUBIAS Other Providers: Babatunde Vera ; Lukasz Khan Coding Diagnoses Infected sebaceous cyst L72.3; L08.9 Atrial fibrillation I48.91 Diabetes mellitus type II, uncontrolled E11.65 Hypercholesterolemia E78.00 HTN (hypertension) I10 Schizophrenia F20.9 Hyperthyroidism E05.90 Severe protein-calorie malnutrition E43 DVT prophylaxis Z29.9
[2019-05-01] MEDS: WARFARIN SOD 7.5 MG TAB PO SCH (15:46)
[2019-05-02] MEDS ORDERED: VANCOMYCIN TROUGH ONE (01:30)
[2019-05-03 01:24] LABS: EAG mmol/L 16.5 (calc)
== END 2019-05-01 18:56 | DRG 602 ==
LOC: ED 14:03 → SUATTDRO 21:30 → 3N 21:30